=== PATIENT | male | born 1960 | race Caucasian/White ===

== ENCOUNTER → 2017-10-30 | Outpatient (CLI) | payer BC ==
[2015-02-22 09:25] VITALS: BP 132/79
[~2017-10-30] MED LIST: ASPIR LOW81 MG PO
[2017-10-30 14:07] LABS: EOS # 0.1 (0.04-0.40); EOS % 1.2 % (0.0-4.0); HEMATOCRIT 50.4 % (42.0-52.0); HEMOGLOBIN 16.9 g/dL (13.5-18.0); LYMPH# 1.7 (1.50-4.00); MEAN CELL VOLUME 93 fl (78-100); MEAN CORPUSCULAR HEMOGLOBIN 31 pg (27-31); MEAN CORPUSCULAR HGB CONC 34 g/dL (33-37); MEAN PLATELET VOLUME 10.8 fl (7.4-10.4); MONO # 0.4 (0.20-0.80); NEU # 2.6 (1.40-6.50); PLATELET COUNT 190 K/mm3 (130-400); RED BLOOD COUNT 5.45 M/mm3 (4.20-5.60); WHITE BLOOD COUNT 4.9 K/mm3 (4.8-10.8)
[2017-10-31 00:03] LABS: ERYTHROCYTE SEDIMENTATION RATE 2 mm/hr (0-20)
[2017-10-31 01:45] LABS: C-REACTIVE PROTEIN XXX
== END ==
LOC: LAB 13:45
PROVIDERS: Optometrist
DX: H47.012 Ischemic optic neuropathy, left eye (principal)

== ENCOUNTER → 2017-11-01 | Outpatient (CLI) | payer BC ==
[2015-02-22 09:25] VITALS: BP 132/79
== END ==
LOC: LAB 07:58
DX: H54.61 Unqualified visual loss, right eye, normal vision left eye (principal)

== ENCOUNTER → 2018-01-01 | Outpatient (CLI) | payer BC ==
[2015-02-22 09:25] VITALS: BP 132/79
== END ==
LOC: LAB 16:49
DX: L20.9 Atopic dermatitis, unspecified (principal)

== ENCOUNTER → 2018-02-07 | Outpatient (CLI) | payer BC ==
[2015-02-22 09:25] VITALS: BP 132/79
== END ==
LOC: RAD 08:03
DX: Z02.4 Encounter for examination for driving license (principal); H47.012 Ischemic optic neuropathy, left eye; Q15.8 Other specified congenital malformations of eye

== ENCOUNTER → 2022-02-14 | Outpatient (CLI) | payer BC ==
[2022-02-14 07:53] LABS: ALBUMIN 4.2 g/dL (3.5-5.0); POTASSIUM 4.2 mmol/L (3.5-5.1)
[2022-02-14 07:55] LABS: CALCIUM 9.7 mg/dL (8.3-10.5)
[2022-02-14 07:56] LABS: TOTAL PROTEIN 7.1 g/dL (6.4-8.3)
[2022-02-14 07:58] LABS: TOTAL BILIRUBIN 0.8 mg/dL (0.2-1.2)
== END ==
LOC: LAB 07:10
PROVIDERS: Family Medicine
DX: Z13.1 Encounter for screening for diabetes mellitus (principal); Z12.5 Encounter for screening for malignant neoplasm of prostate; Z13.220 Encounter for screening for lipoid disorders; Z12.11 Encounter for screening for malignant neoplasm of colon

== ENCOUNTER → 2022-06-05 | Outpatient (CLI) | payer BC ==
[2022-06-05 07:58] LABS: POTASSIUM 4.3 mmol/L (3.5-5.1)
[2022-06-05 07:59] LABS: CALCIUM 9.2 mg/dL (8.3-10.5)
== END ==
LOC: LAB 07:23
PROVIDERS: Family Medicine
DX: E78.00 Pure hypercholesterolemia, unspecified (principal); R09.89 Other specified symptoms and signs involving the circulatory and respiratory systems

== ENCOUNTER → 2024-02-20 | Outpatient (CLI) | payer BC | LOC: LAB 08:00 | DX: Z13.220 Encounter for screening for lipoid disorders (principal); Z12.5 Encounter for screening for malignant neoplasm of prostate; N13.1 Hydronephrosis with ureteral stricture, not elsewhere classified ==

== ENCOUNTER → 2024-06-16 | Outpatient (CLI) | payer BC | LOC: LAB 07:44 | DX: Z13.220 Encounter for screening for lipoid disorders (principal); Z13.1 Encounter for screening for diabetes mellitus; Z12.5 Encounter for screening for malignant neoplasm of prostate ==